=== PATIENT | female | born 1945 | race Caucasian/White ===

== ENCOUNTER 2025-04-25 14:35 | Emergency (ER) | payer MEDICARE ==
[2025-04-25] MEDS ORDERED: Ondansetron PF 4 MG/2 ML Vial ONE (15:21)
[2025-04-25 15:25] LABS: Anion Gap 18 mmol/L (10-20); Chloride 96 mmol/L (98-107); Globulin 2.7 g/dL (2.4-3.5); Potassium 3.1 mmol/L (3.5-5.1); Sodium 135 mmol/L (136-145); Troponin I Less than 0.010 ng/mL (< 0.028)
[2025-04-25 15:27] LABS: #Basophils 0.2 thou/uL (0.0-0.2); #Eosinophils 0.1 thou/uL (0.0-0.7); #Lymphocytes 0.9 thou/uL (1.20-3.40); #Monocytes 0.6 thou/uL (0.11-0.59); #Neutrophils 5.1 thou/uL (1.40-6.50); %Basophils 2.9 % (0.0-1.0); %Eosinophils 1.1 % (0.0-10.0); %Lymphocytes 13.2 % (21.0-51.0); %Monocytes 8.8 % (0.0-10.0); %Neutrophils 73.9 % (42.0-75.0); Hematocrit 39.0 % (36.0-47.0); Hemoglobin 15.4 g/dL (12.0-16.0); Mean Corpuscular Hemoglobin 31.4 pg (27.0-31.0); Mean Corpuscular Volume 79.7 fl (78.0-98.0); Platelet Count 239 10x3/uL (130-400); Red Blood Cell (RBC) Count 4.90 mill/uL (4.20-5.40); White Blood Cell (WBC) Count 6.9 10x3/uL (4.8-10.8)
[2025-04-25 15:28] LABS: MDiff Complete? YES
[2025-04-25 15:33] LABS: ALT (SGPT) 48 U/L (Less than 34); AST (SGOT) 40 U/L (11-34); Albumin 4.5 g/dL (3.1-4.5); Alkaline Phosphatase 37 U/L (40-110); BUN (Urea Nitrogen) 12 mg/dL (9.8-20.1); Bilirubin, Total 1.2 mg/dL (0.3-1.2); Calc. Creatinine Clearance 0 mL/min (70-130); Calcium 9.5 mg/dL (7.8-10.44); Carbon Dioxide 23 mmol/L (23-31); Glucose 131 mg/dL (83-110)
== END 2025-04-25 16:19 | disposition home or self-care (01) ==
LOC: BURERS 14:35
DX: R42 Dizziness and giddiness (principal); R11.0 Nausea; T50.905A Adverse effect of unspecified drugs, medicaments and biological substances, initial encounter; I48.91 Unspecified atrial fibrillation; I10 Essential (primary) hypertension; R29.700 NIHSS score 0; Z79.01 Long term (current) use of anticoagulants; Z79.899 Other long term (current) drug therapy; Z87.891 Personal history of nicotine dependence
CPT/HCPCS: 71045; 80053; 83880; 84484; 85025; 93005; 96374; J2405